=== PATIENT | male | born 1945 | race Two or more races ===

== ENCOUNTER → 2016-12-19 | Outpatient (CLI) | payer MEDICARE, OTHER ==
[~2016-12-19] MED LIST: REGADENOSON 0.4 MG/5 ML DISP.SYRIN. IV ONE
--- NOTE | 2016-12-19 12:41 | RAD ---
APPROVED REPORT Test Type: Pharmacological Stress Nurse/Tech: Cholo Chamberlain RN Test Indications: chest pain Cardiac History: see ehr Medications: see ehr Medical History: see ehr Resting ECG: SB Resting Heart Rate: 53 bpm Resting Blood Pressure: 150/79mmHg Pretest Chest Pain: None Nurse/Tech Notes Lungs CTA, S1,S2 Consent: The procedure was explained to the patient in lay terms. Informed consent was witnessed. Luis Armando eout was entered into [employer]. History and Stress Test performed by Adarsh [facility]aton[facility] [employer]. Details Pharmacologic stress testing was performed using 0.4mg per 5ml of regadenoson given intravenously ove r 7-10 seconds. Stress Symptoms No chest pain or symptoms. POST EXERCISE Reason for Termination: Infusion complete Max HR: 91 bpm Max Blood Pressure: 157/80mmHg Blood Pressure response to exercise: Normal blood pressure response during stress. Chest Pain: No. Arrhythmia: No. INTERPRETATION Stress EKG Conclusion: Baseline EKG showed sinus rhythm with PAC's. No ischemic changes at peak stre ss. No arrhythmias. Imaging Protocol IMAGE PROTOCOL: Rest Tc-99m/stress Tc-99m 1 day Rest: Stress: Viability: Radiopharm.Tc99m [id number] Sestamibi Dose13.1mCi 34.1mCi Duration 15min. 10min. Img Date 12/19/2016 12/19/2016 Inj-Img [id number]. 60min. Rest Admin Site:IV - Left AntecubitalAdministrator:VIJAY Mccollum Stress Admin Site: IV - Left AntecubitalAdministrator: JC Guthrie, ARRT (R)(N) STRESS DATA End Diast. Vol.124.0mlAv. Heart Rate61.0bpm End Syst. Vol.41.0mlCO Index BSA0.0L/min Myocardial Gdir174.0gEject. Vqybeaua88.0% Stress Rates Pk. Fill Rate2.35EDV/secLVtime Pk. Fill 291.23msec Pk. Empty Rate3.23ESV/secLVtime Pk. Ikenu630.23msec 04/18 Pk. Fill0.99EDV/sec Stress Scores Regional WT2.00Summed WT13.00 Regional WM0.00Summed WM1.00 Study quality was good. Left Ventricular size was Normal at Rest and Stress. Lung uptake was Normal. Left Ventricular ejection fraction is 67%. The rest and stress images show normal perfusion, normal contraction and thickening. LV Perf. Quant 17 Seg. SSS0.00 17 Seg. SRS2.00 17 Seg. SDS0.00 Stress Defect Extent (% LAD)0.00Rest Defect Extent (% LAD)0.00Rev. Defect Extent (% LAD)0.00 Stress Defect Extent (% LCX) 0.00Rest Defect Extent (% LCX)6.30Rev. Defect Extent (% LCX)0.00 Stress Defect Extent (% RCA)0.00Rest Defect Extent (% RCA)0.00Rev. Defect Extent (% RCA)0.00 Stress Defect Extent (% BERTA)0.00Rest Defect Extent (% BERTA)1.50Rev. Defect Extent (% BERTA)0.00 Conclusion 1. Regadenoson cardioisotope stress test did not show any evidence of ischemia or infarct. 2. Normal left ventricular systolic function with ejection fraction calculated at 67%. 3. Low risk for cardiac events.
== END | disposition home or self-care (01) ==
LOC: NM 08:27
PROVIDERS: ATTEND Internal Medicine Cardiovascular Disease
DX: R07.9 Chest pain, unspecified (principal)
CPT/HCPCS: 78452; 93017; 96374; 96375; 96376; A9500; J2785

== ENCOUNTER → 2020-05-19 | Outpatient (CLI) | payer OTHER, MEDICAID ==
--- NOTE | 2020-05-19 19:54 | KCIC ---
Exam: Chest 2 views INDICATION: COPD, chest wall pain TECHNIQUE: Frontal and lateral views the chest Comparisons: None FINDINGS: The cardiomediastinal silhouette and pulmonary vessels are within normal limits. The lung and pleural spaces are clear. IMPRESSION: No acute cardiopulmonary process. Electronically signed by: Amari Gomez MD (05/19/2020 7:51 PM) ALEXANDER
== END ==
LOC: KCIC 15:49
PROVIDERS: ATTEND Family Medicine
DX: R07.89 Other chest pain (principal)
CPT/HCPCS: 71046

== ENCOUNTER → 2021-06-14 | Outpatient (CLI) | payer OTHER, MEDICAID ==
--- NOTE | 2021-06-14 17:01 | RAD ---
Exam: XR KNEE 3 VIEWS_RT History: Right knee pain Comparison: None. Findings: Osseous mineralization is normal. No acute fracture or dislocaton. Tricompartmental osteophytes. Narr owing of the medial tibiofemoral compartment. Subchondral sclerosis and lucencies. Small suprapatella r effusion. No focal soft tissue swelling. Atherosclerotic calcifications of the vasculature. Dystrop hic calcifications in the popliteal fossa. Impression: 1. Right knee osteoarthritis without acute osseous abnormality. Electronically signed by: Sy Richards MD (06/14/2021 4:59 PM) [id number]
== END ==
LOC: MRI 09:19
PROVIDERS: ATTEND Family Medicine
DX: M17.11 Unilateral primary osteoarthritis, right knee (principal); M25.461 Effusion, right knee; M25.761 Osteophyte, right knee; M25.861 Other specified joint disorders, right knee
CPT/HCPCS: 73562